=== PATIENT | male | born 1980 | race Caucasian/White ===

== ENCOUNTER 2019-04-10 09:28 | Emergency (ER) | payer SELFPAY ==
[2019-04-10 11:34] LABS: Bilirubin Moderate (Negative); Blood, Urine Moderate (Negative); Glucose, Urine (Dipstick) Negative (Negative); Leukocyte Small (Negative); Nitrite Negative (Negative); Protein, Urine (Dipstick) 100 mg/dL (Neg-Trace)
[2019-04-10 11:38] LABS: Clarity Clear (Clear)
[2019-04-10 11:42] LABS: Bacteria/HPF 2+ HPF (None Seen); RBC/HPF 0-3 HPF (0-3); WBC/HPF Greater Than 50 HPF (0-3)
[2019-04-10] MEDS ORDERED: Azithromycin 250 MG TAB ONE (11:57)
[2019-04-10] MEDS ORDERED: Gentamicin 80 MG/2 ML VIAL IM SCH (12:30)
== END 2019-04-10 13:20 | disposition home or self-care (01) ==
LOC: ERS 09:28
DX: R30.0 Dysuria (principal); F41.9 Anxiety disorder, unspecified; F17.210 Nicotine dependence, cigarettes, uncomplicated
CPT/HCPCS: 81003; 81015; 96372; 99283; J1580

== ENCOUNTER 2020-01-03 19:09 | Emergency (ER) | payer SELFPAY ==
[2020-01-03] MEDS ORDERED: Morphine 4 MG/ML VIAL ONE (19:53)
--- NOTE | 2020-01-03 20:11 | RAD ---
RIGHT ANKLE THREE VIEWS: 01/03/20 HISTORY: Ankle injury. Soft tissue swelling is seen adjacent to the lateral malleolus. There is no joint effusion or fractur e identified. IMPRESSION: Soft tissue swelling. No evidence of fracture. POS: [facility]
--- NOTE | 2020-01-03 20:11 | RAD ---
RIGHT FOOT THREE VIEWS: 01/03/20 HISTORY: Foot injury. Soft tissue swelling is seen adjacent to the lateral malleolus. No fracture or dislocation. IMPRESSION: No evidence of fracture. POS: [facility]
[2020-01-03] MEDS ORDERED: Ketorolac Tromethamine 30 MG/ML VIAL ONE (21:19)
== END 2020-01-03 21:53 ==
LOC: ERS 19:09
DX: S93.401A Sprain of unspecified ligament of right ankle, initial encounter (principal); G43.909 Migraine, unspecified, not intractable, without status migrainosus; I10 Essential (primary) hypertension; F41.9 Anxiety disorder, unspecified; Z87.891 Personal history of nicotine dependence; W19.XXXA Unspecified fall, initial encounter; Y04.0XXA Assault by unarmed brawl or fight, initial encounter; Y92.149 Unspecified place in prison as the place of occurrence of the external cause
CPT/HCPCS: 96372; J1885; J2270